=== PATIENT | female | born 1960 | race Hispanic/Latino ===

== ENCOUNTER → 2017-07-30 | Outpatient (CLI) | payer MEDICARE | END | disposition home or self-care (01) | LOC: RAH 07:52 | PROVIDERS: ATTEND Family Medicine | DX: Z12.31 Encounter for screening mammogram for malignant neoplasm of breast (principal) | CPT/HCPCS: 77067 ==

== ENCOUNTER → 2018-08-01 | Outpatient (CLI) | payer MEDICARE | END | disposition home or self-care (01) | LOC: RAH 08:35 | PROVIDERS: ATTEND Family Medicine | DX: Z12.31 Encounter for screening mammogram for malignant neoplasm of breast (principal) | CPT/HCPCS: 77067 ==

== ENCOUNTER → 2018-09-09 | Outpatient (CLI) | payer MEDICARE | END | disposition home or self-care (01) | LOC: RAH 08:43 | PROVIDERS: ATTEND Family Medicine | DX: K76.0 Fatty (change of) liver, not elsewhere classified (principal) | CPT/HCPCS: 76700 ==

== ENCOUNTER → 2018-12-02 | Outpatient (CLI) | payer MEDICARE | END | disposition home or self-care (01) | LOC: RAH 13:09 | PROVIDERS: ATTEND Family Medicine | DX: M79.605 Pain in left leg (principal) | CPT/HCPCS: 93971 ==

== ENCOUNTER → 2019-08-15 | Outpatient (CLI) | payer MEDICARE | END | disposition home or self-care (01) | LOC: RAH 08:12 | PROVIDERS: ATTEND Family Medicine | DX: Z12.31 Encounter for screening mammogram for malignant neoplasm of breast (principal); N63.20 Unspecified lump in the left breast, unspecified quadrant | CPT/HCPCS: 77067 ==

== ENCOUNTER → 2019-10-24 | Outpatient (CLI) | payer OTHER, MEDICARE | END | disposition home or self-care (01) | LOC: RAH 10-11 12:25 | PROVIDERS: ATTEND Family Medicine | DX: N63.24 Unspecified lump in the left breast, lower inner quadrant (principal); N63.42 Unspecified lump in left breast, subareolar | CPT/HCPCS: 76641; 77065 ==

== ENCOUNTER 2020-12-08 09:55 | Observation (INO) | payer OTHER, MEDICARE ==
[~2020-12-08] VITALS: Ht 154.9 cm; Wt 81.6 kg
[2020-12-08 09:57] VITALS: BP 109/91
[2020-12-08 10:58] LABS: APPEARANCE,URINE Clear (CLEAR); BILIRUBIN,URINE Negative (NEGATIVE); COLOR,URINE Yellow (YELLOW); GLUCOSE, URINE (UA) Negative (NEGATIVE); KETONES,URINE Negative (NEGATIVE); LEUKOCYTE ESTERASE ,URINE Negative (NEGATIVE); NITRATE,URINE Negative (NEGATIVE); OCCULT BLOOD,URINE Negative (NEGATIVE); PH,URINE 6.5 (5.0-8.0); PROTEIN,URINE Negative (NEGATIVE); UROBILINOGEN,URINE 0.2 mg/dL (0.2-1.0)
[2020-12-08 11:03] VITALS: BP 110/63
[2020-12-08 11:14] LABS: HEMATOCRIT 47.6 % (36-48); MEAN CORPUSCULAR HEMOGLOBIN 30.2 pg (27.0-33.0); MEAN CORPUSCULAR HGB CONC 33.6 g/dL (32.0-36.0); MEAN CORPUSCULAR VOLUME 89.8 fL (79-99); RED BLOOD CELL COUNT(AUTO) 5.3 MIL/uL (4.00-5.50); WHITE BLOOD COUNT (AUTO) 5.8 K/uL (4.8-10.8)
[2020-12-08 11:25] LABS: ALBUMIN 3.7 g/dL (3.5-5.0); BILIRUBIN,TOTAL 0.3 mg/dL (0.2-1.0); POTASSIUM 3.9 mmol/L (3.5-5.1); TOTAL PROTEIN, SERUM 7.2 g/dL (6.0-8.3)
[2020-12-08 12:49] VITALS: BP 112/54
[2020-12-08] MEDS ORDERED: ONDANSETRON 4MG INJ IVP PRN (14:30)
[2020-12-08] MEDS ORDERED: ACETAMINOPHEN 650 MG SUPPOSITORY RC PRN (14:30)
[2020-12-08] MEDS ORDERED: ACETAMINOPHEN 325 MG TAB PO PRN (14:30)
[2020-12-08] MEDS ORDERED: CLONIDINE HCL 0.1 MG TABLET PO PRN (14:30)
[2020-12-08] MEDS ORDERED: HYDRALAZINE 20MG/ML VIAL IV PRN (14:30)
[2020-12-08] MEDS ORDERED: ASPIRIN 325MG TAB PO ONE (14:30)
[2020-12-08 14:40] LABS: BASOPHILS % (AUTO) 1.3 % (0.0-5.0); EOSINOPHILS % (AUTO) 3.7 % (0.0-8.0); HEMATOCRIT 46.1 % (36-48); LYMPHOCYTES % (AUTO) 36.5 % (21.0-51.0); MEAN CORPUSCULAR HEMOGLOBIN 30.3 pg (27.0-33.0); MEAN CORPUSCULAR HGB CONC 34.1 g/dL (32.0-36.0); MEAN CORPUSCULAR VOLUME 88.8 fL (79-99); MONOCYTES % (AUTO) 9.4 % (3.0-13.0); NEUTROPHILS % (AUTO) 48.9 % (40.0-77.0); PLATELET COUNT (AUTO) 196 K/uL (130-400); RED BLOOD CELL COUNT(AUTO) 5.19 MIL/uL (4.00-5.50); RED CELL DISTRIBUTION WIDTH 12.9 % (11.0-15.5); WHITE BLOOD COUNT (AUTO) 6.1 K/uL (4.8-10.8)
[2020-12-08 14:52] LABS: INR 1.01 (0.85-1.15)
[2020-12-08 15:12] LABS: CREATINE KINASE, TOTAL 94 U/L (21-232); MYOGLOBIN 42 ng/mL (10-92); TROPONIN I < 0.04 ng/mL (0.00-0.06)
[2020-12-08] MEDS ORDERED: ASPIRIN 325MG TAB ONE (15:53)
[2020-12-08 17:02] LABS: AMPHET/METH SCREEN,URINE NEGATIVE (NEGATIVE); BARBITURATE SCREEN, URINE NEGATIVE (NEGATIVE); BENZODIAZEPINES SCREEN,URINE NEGATIVE (NEGATIVE); CANNABINOID SCREEN,URINE NEGATIVE (NEGATIVE); COCAINE SCREEN,URINE NEGATIVE (NEGATIVE); OPIATE SCREEN,URINE NEGATIVE (NEGATIVE); PHENCYCLIDINE SCREEN,URINE NEGATIVE (NEGATIVE)
[2020-12-08 17:56] VITALS: BP 111/46
[2020-12-08] MEDS ORDERED: ARIP20TA21 PO (18:44)
[2020-12-08] MEDS ORDERED: BUPR200T34 PO (18:44)
[2020-12-08] MEDS ORDERED: BENZ0.5T43 PO (18:44)
[2020-12-08 20:00] VITALS: BP 104/52
[2020-12-08 20:07] LABS: CREATINE KINASE, TOTAL 86 U/L (21-232); MYOGLOBIN 41 ng/mL (10-92); TROPONIN I < 0.04 ng/mL (0.00-0.06)
[2020-12-08 23:56] VITALS: BP 105/64
[2020-12-09 02:20] LABS: HEMATOCRIT 45.3 % (36-48); MEAN CORPUSCULAR HEMOGLOBIN 30.5 pg (27.0-33.0); MEAN CORPUSCULAR VOLUME 89.7 fL (79-99); RED BLOOD CELL COUNT(AUTO) 5.05 MIL/uL (4.00-5.50); RED CELL DISTRIBUTION WIDTH 13.1 % (11.0-15.5); WHITE BLOOD COUNT (AUTO) 6.6 K/uL (4.8-10.8)
[2020-12-09 02:40] LABS: CARBON DIOXIDE 28 mmol/L (21-32); CHLORIDE 108 mmol/L (101-111); CHOLESTEROL 130 mg/dL (<200); CREATINE KINASE, TOTAL 81 U/L (21-232); GLOMERULAR FILTR. RATE CALC 60 mL/min (>60); GLUCOSE,RANDOM 102 mg/dL (70-105); HDL CHOLESTEROL 44 mg/dL (35-85); LDL DIRECT 64 mg/dL (0-99); MYOGLOBIN 30 ng/mL (10-92); PHOSPHORUS 3.2 mg/dL (2.5-4.9); POTASSIUM 3.9 mmol/L (3.5-5.1); SODIUM SERUM 144 mmol/L (136-145); TRIGLYCERIDES 136 mg/dL (30-200); TROPONIN I < 0.04 ng/mL (0.00-0.06); UREA NITROGEN, BLOOD 14 mg/dL (7-18)
[2020-12-09 02:43] LABS: HEMOGLOBIN A1C 5.9 % (4.0-6.0)
[2020-12-09 04:00] VITALS: BP 100/50
[2020-12-09] MEDS: LACTATED RINGERS 1000ML 1,000 ML IV SCH ×2 (06:17→14:30)
[2020-12-09] MEDS ORDERED: GADOTERATE MEGLUMINE 10 MMOL/20 ML VIAL IV ONE (07:56)
[2020-12-09 08:03] VITALS: BP 104/70
[2020-12-09] MEDS ORDERED: ASPIRIN 81MG CHEW TAB PO SCH (09:00)
[2020-12-09] MEDS ORDERED: PANTOPRAZOLE 40 MG TAB DR PO SCH (09:00)
[2020-12-09 11:13] VITALS: BP 134/59
[2020-12-09 16:24] VITALS: BP 123/76
== END 2020-12-09 18:35 | disposition home or self-care (01) ==
LOC: EDH 09:55 → EDHIP 14:16 → 3BH 17:38
PROVIDERS: ADMIT Internal Medicine Pulmonary Disease; ATTEND Internal Medicine Pulmonary Disease
DX: R27.0 Ataxia, unspecified (principal); Z20.822 Contact with and (suspected) exposure to COVID-19; T50.905A Adverse effect of unspecified drugs, medicaments and biological substances, initial encounter; F41.9 Anxiety disorder, unspecified; R27.8 Other lack of coordination; F41.0 Panic disorder [episodic paroxysmal anxiety]; F32.9 Major depressive disorder, single episode, unspecified; I10 Essential (primary) hypertension; E10.9 Type 1 diabetes mellitus without complications; E66.01 Morbid (severe) obesity due to excess calories; R29.6 Repeated falls; I67.89 Other cerebrovascular disease; F03.90 Unspecified dementia, unspecified severity, without behavioral disturbance, psychotic disturbance, mood disturbance, and anxiety; Z79.82 Long term (current) use of aspirin; Z68.34 Body mass index [BMI] 34.0-34.9, adult; Z79.899 Other long term (current) drug therapy
CPT/HCPCS: 36415 ×2; 70450; 70544; 70553; 71045; 80048; 80053; 80061; 80305; 81003; 82550 ×3; 83036; 83735; 83874 ×3; 84100; 84484 ×4; 85025; 85027 ×2; 85378; 85610; 87635; 87804 ×2; 92610; 93005; 93306; 93356; 93880; 96360; 96361; 97161; 99285; A9575; C8929; C9803; G0378 ×27; G8978; G8979; G8980; G8981; G8982; G8983

== ENCOUNTER → 2021-06-09 | Outpatient (CLI) | payer MEDICARE ==
[~2021-06-09] MED LIST: ARIP20TA21 PO; BUPR200T34 PO
== END | disposition home or self-care (01) ==
LOC: RAH 05-06 10:00
PROVIDERS: ATTEND Family Medicine
DX: Z12.39 Encounter for other screening for malignant neoplasm of breast (principal); R92.2 Inconclusive mammogram; R92.1 Mammographic calcification found on diagnostic imaging of breast; Z85.3 Personal history of malignant neoplasm of breast; Z98.890 Other specified postprocedural states
CPT/HCPCS: 77066

== ENCOUNTER → 2022-05-19 | Outpatient (CLI) | payer OTHER, MEDICARE ==
[~2022-05-19] MED LIST changes: +ESOM40CA PO; +NAPR-1180 PO; +NIRM1TAB5 PO
== END | disposition home or self-care (01) ==
LOC: RAH 08:38
PROVIDERS: ATTEND Family Medicine
DX: Z12.31 Encounter for screening mammogram for malignant neoplasm of breast (principal)
CPT/HCPCS: 77067

== ENCOUNTER 2022-08-14 22:50 | Emergency (ER) | payer OTHER, MEDICARE | END 2022-08-15 01:05 | disposition left against medical advice (07) | LOC: EDH 22:50 | DX: M25.561 Pain in right knee (principal); Z53.21 Procedure and treatment not carried out due to patient leaving prior to being seen by health care provider ==

== ENCOUNTER 2023-03-15 00:10 | Emergency (ER) | payer OTHER, MEDICARE ==
[~2023-03-15] VITALS: Ht 152.4 cm; Wt 78.0 kg
[2023-03-15 01:09] VITALS: BP 136/61; PULSE 61; RESP 18; O2SAT 96
[2023-03-15] MEDS ORDERED: AMIT25TA10 PO (01:21)
[2023-03-15] MEDS ORDERED: IBUP-2088 PO (01:21)
== END 2023-03-15 01:36 | disposition home or self-care (01) ==
LOC: EDH 00:10
DX: R20.0 Anesthesia of skin (principal); Z79.899 Other long term (current) drug therapy
CPT/HCPCS: 73130

== ENCOUNTER → 2023-05-20 | Outpatient (CLI) | payer OTHER, MEDICARE ==
[~2023-05-20] MED LIST changes: +AMIT25TA10 PO; +IBUP-2088 PO
== END | disposition home or self-care (01) ==
LOC: RAH 10:04
PROVIDERS: ATTEND Nurse Practitioner Family
DX: Z12.31 Encounter for screening mammogram for malignant neoplasm of breast (principal)
CPT/HCPCS: 77067

== ENCOUNTER 2023-07-01 21:56 | Emergency (ER) | payer OTHER, MEDICARE | END 2023-07-01 23:32 | disposition left against medical advice (07) | LOC: EDH 21:56 | DX: R20.0 Anesthesia of skin (principal); M79.641 Pain in right hand; Z53.21 Procedure and treatment not carried out due to patient leaving prior to being seen by health care provider ==

== ENCOUNTER → 2024-05-24 | Outpatient (CLI) | payer OTHER, MEDICARE ==
[~2024-05-24] MED LIST changes: -ARIP20TA21 PO; +ARIP20TA63 PO
--- NOTE | 2024-05-25 09:17 | HMCIMG ---
SCREENING MAMMOGRAM REASON: Annual Exam COMPARISON: 05/20/2023 TECHNIQUE: CC and MLO views of the bilateral breasts were performed.CAD was performed as well. FINDINGS: Parenchymal density: There are scattered areas of fibroglandular density. There are no focal mass lesions. There are no pathologic appearing calcifications. There is no evidence of architectural distortion or skin thickening. MicroMark clip is again noted in the medial portion of the left breast. IMPRESSION: Stable screening mammogram. The patient was entered into a reminder system with a target due date for their next mammogram. BI-RADS CATEGORY 2: BENIGN FINDINGS Recommend monthly self breast exam as well as annual clinical examination. A negative x-ray should not delay biopsy if a dominant or clinically suspicious mass is present, since 8-10% of cancers are not identified by mammography. Dense breasts particularly, may obscure an underlying neoplasm. Some of these may be detected clinically and therefore, clinical examination is an essential part of breast evaluation.
== END | disposition home or self-care (01) ==
LOC: RAH 11:26
PROVIDERS: ATTEND Internal Medicine
DX: Z12.31 Encounter for screening mammogram for malignant neoplasm of breast (principal); R92.323 Mammographic fibroglandular density, bilateral breasts
CPT/HCPCS: 77067

== ENCOUNTER → 2024-08-15 | Outpatient (CLI) | payer OTHER, MEDICARE ==
--- NOTE | 2024-08-15 10:48 | HMCIMG ---
Exam Type: SHOULDER COMP 2+VWS RT Clinical Information: PAIN IN RIGHT SHOULDER Comparison: None FINDINGS: The acromioclavicular joint shows hypertrophy, which may impinge upon the rotator cuff tendon. The glenohumeral joint is preserved. Visualized portions of the humerus, the scapula, and the clavicle as well as the upper ribcage are unremarkable. No pulmonary pathology is noted in the visualized portions of the upper lobe. The soft tissues are preserved. There are no other gross abnormalities. IMPRESSION: Degenerative changes of the acromioclavicular joint with hypertrophy.
--- NOTE | 2024-08-15 10:50 | HMCIMG ---
Exam Type: FOOT COMP 3+VWS RT Clinical Information: PAIN IN UNSPECIFIED ANKLE AND JOINTS OF UNSPECIFIED FOOT Comparison: None Findings: The examination is unremarkable except for calcaneal spurs. No fractures or dislocations are seen. No radiopaque foreign bodies are noted. Soft tissues are preserved. IMPRESSION: Calcaneal spurs.
--- NOTE | 2024-08-15 10:50 | HMCIMG ---
Exam Type: ANKLE COMP 3VWS RT Clinical Information: PAIN IN UNSPECIFIED ANKLE AND JOINTS OF UNSPECIFIED FOOT Comparison: None Findings: Routine views of the ankle reveal no evidence of acute fracture or dislocation. The ankle mortise is intact. There is no evidence of arthritic or inflammatory change. IMPRESSION: NO ACUTE ANKLE ABNORMALITY.
== END | disposition home or self-care (01) ==
LOC: RAH 09:37
PROVIDERS: ATTEND Internal Medicine
DX: M19.011 Primary osteoarthritis, right shoulder (principal); M77.31 Calcaneal spur, right foot; M25.811 Other specified joint disorders, right shoulder; M25.511 Pain in right shoulder; M25.571 Pain in right ankle and joints of right foot
CPT/HCPCS: 73030; 73610; 73630

== ENCOUNTER → 2025-02-15 | Outpatient (CLI) | payer OTHER, MEDICAID ==
[~2025-02-15] MED LIST changes: -AMIT25TA10 PO; +AMIT25TA22 PO; -IBUP-2088 PO; +IBUP-2859 PO
--- NOTE | 2025-02-15 12:52 | HMCIMG ---
WRIST COMP 3+VWS LT REASON: PAIN IN LEFT WRIST TECHNIQUE: 3 views were obtained. FINDINGS: There is no evidence of fracture or dislocation. There is no joint effusion. The soft tissues appear unremarkable. There is no evidence of a radiopaque foreign body. Is mild osteopenia. IMPRESSION: No acute findings. Mild osteopenia
--- NOTE | 2025-02-15 12:55 | HMCIMG ---
HAND 3+VWS LT REASON: PAIN IN LEFT HAND TECHNIQUE: 3 views were obtained. FINDINGS: There is no evidence of fracture or dislocation. There is no joint effusion. The soft tissues appear unremarkable. There is no evidence of a radiopaque foreign body. There is mild osteopenia. IMPRESSION: No acute findings. Mild osteopenia
== END | disposition home or self-care (01) ==
LOC: RAH 10:49
PROVIDERS: ATTEND Internal Medicine
DX: M85.842 Other specified disorders of bone density and structure, left hand (principal); M85.89 Other specified disorders of bone density and structure, multiple sites; M25.532 Pain in left wrist; M79.642 Pain in left hand
CPT/HCPCS: 73110; 73130